=== PATIENT | male | born 1975 | race African-American/Black ===

== ENCOUNTER 2024-06-18 13:12 | Emergency (ER) | payer MEDICAID, OTHER ==
[~2024-06-18] VITALS: Ht 175.3 cm; Wt 235.0 kg
[2024-06-18 13:16] VITALS: O2SAT 99
[2024-06-18] MEDS ORDERED: IBUP-2030 MT (13:21)
[2024-06-18] MEDS: IBUPROFEN 800MG TABLET PO ONE (13:24)
[2024-06-18 13:26] VITALS: BP 144/85; PULSE 98; RESP 15; TEMP 37.1; O2SAT 100
== END 2024-06-18 13:27 | disposition home or self-care (01) ==
LOC: ER 13:12
DX: G89.29 Other chronic pain (principal); M79.18 Myalgia, other site; Z59.00 Homelessness unspecified
CPT/HCPCS: 99283